=== PATIENT | male | born 1980 | race Caucasian/White ===

== ENCOUNTER 2020-07-07 19:10 | Emergency (ER) | payer OTHER ==
[2020-07-07 20:20] LABS: BASOPHIL 0.5 % (0-2); EOSINOPHIL 2.5 % (0-5); HCT 38.3 % (42.0-52.0); HGB 12.8 g/dl (13.2-18.0); LYMPHOCYTE 36.7 % (15-48); MCH 31.7 pg (25.0-31.0); MCHC 33.4 g/dL (32.0-36.0); MCV 94.8 fL (78.0-100.0); MONOCYTE 9.6 % (0-12); MPV 9.9 fL (6.0-9.5); NEUTROPHIL 50.5 % (41-80); NRBC 0; PLT 194 K/uL (150-400); RBC 4.04 M/uL (4.70-6.00); RDW 13.7 % (11.5-14.0); WBC 6.4 K/uL (4.0-10.5)
[2020-07-07 20:31] LABS: INR 0.97 (0.9-1.2); PROTHROMBIN TIME 12.2 SECONDS (11.4-13.6); PTT 30.9 SECONDS (22.2-34.7)
[2020-07-07 20:32] LABS: D-DIMER 0.46 ug/mLFEU (0.00-0.41)
[2020-07-07 20:37] LABS: ALBUMIN 3.2 g/dL (3.4-5.0); BILIRUBIN - TOTAL 0.4 mg/dL (0.2-1.0); BUN/CREAT RATIO (CALC) 17.6 RATIO; CREATININE 1.08 mg/dL (0.67-1.17); GLOBULIN (CALCULATION) 3.2 g/dL; POTASSIUM 4.7 mmol/L (3.5-5.1); TOTAL PROTEIN 6.4 g/dL (6.4-8.2)
== END 2020-07-07 22:25 | disposition home or self-care (01) ==
LOC: FER 19:10
PROVIDERS: Emergency Medicine Emergency Medical Services
DX: L03.115 Cellulitis of right lower limb (principal); Z88.0 Allergy status to penicillin
CPT/HCPCS: 36415; 71045; 80053; 83880; 84484; 85025; 85379; 85610; 85730; 93005; 93971